=== PATIENT | female | born 1940 | race Caucasian/White ===

== ENCOUNTER → 2018-04-05 13:46 | Outpatient (CLI) | payer MEDICARE, OTHER | END | disposition home or self-care (01) | LOC: D.MRI 13:46 | DX: M54.5 Low back pain (principal) ==

== ENCOUNTER → 2019-07-17 13:12 | Outpatient (CLI) | payer MEDICARE, OTHER ==
--- NOTE | 2019-07-25 11:09 | EC ---
PATIENT:LISET PEREIRA DATE OF SERVICE: 07/17/19 SEX: F MEDICAL RECORD: [id number] DATE OF : 44 [facility] AGE OF PATIENT: 78 ADMISSION DATE: 07/17/19 REFERRING PHYSICIAN: INTERPRETING PHYSICIAN: WONG DUMONT MD ECHOCARDIOGRAM REPORT ECHO CHARGES 4 ECHO COMPLETE Date: 07/17/19 CLINICAL DIAGNOSIS: HTN/SOB/CHEST PRESSURE ECHOCARDIOGRAPHIC MEASUREMENTS (adult normal given) AC root (d.<3.7cm) 3.1 cm LV Septum d (<1.2 cm> 1.2 cm Valve Excursion 1.3 cm LV Septum (systole) 1.6 cm Left Atria (s.<4.0cm> 4.5 cm LVPW d(<1.2cm) 1.2 cm RV (d.<2.3cm) 2.5 cm LVPW (sytole) 1.9 cm LV diastole(<5.6CM) 5.3 cm MV E-F(>70mm/sec) cm LV systole 2.8 cm LVOT Diameter 1.7 cm MV exc.(>10mm) cm Est.ejection fraction (50-75%) % DOPPLER: LVIT cm/sec A 83.0 cm/sec E 66.0 cm/sec LA cm/sec RVSP 33.4 mmHg LVOT 92.0 cm/sec AOP1/2T m/s Asc. Ao 146 cm/sec RVOT 57.0 cm/sec RA cm/sec PA 89.0 cm/sec AV Gradient Peak 8.5 mmHg AV Mean 4.6 mmHg AV Area 1.3 cm MV Gradient Peak 4.7 mmHg MV Mean 1.3 mmHg MV Area cm COMMENTS: OP - HC Grey Tender: Tim ALFORD SHONNA Elementary Art Teacher: 1 Dr. Dumont TAPE# PACS Pericardial Effusion N DATE OF SERVICE: 07/17/2019 ECHOCARDIOGRAM DATE OF SERVICE: 07/17/2019 FINDINGS: 1. Left ventricular chamber size is within normal limits. Left ventricular systolic function is normal, estimated at 60%. 2. Left atrium is enlarged at 4.5 cm. Right atrium and right ventricular ECHOCARDIOGRAM REPORT [id number] LISET PEREIRA chamber sizes are as well aknv-id-voxxdyyeby dilated. 3. Valvular structures have normal structure and motion. 4. Doppler interrogation reveals trace mitral regurgitation, mild tricuspid regurgitation, no other valvular insufficiency or stenosis. Pulmonary systolic pressure is estimated at 33 mmHg. 5. No evidence of pericardial effusion or left ventricular thrombus. TRANSINT:[id number] Voice Confirmation ID: [id number] DOCUMENT ID: [id number] WONG DUMONT MD at 1109 CC: [id number] DICTATION DATE: 07/18/19 1558 PRODUCT MGR: 07/18/19 1629 [facility] CLI 07/17/19 [place] [id number]
== END | disposition home or self-care (01) ==
LOC: D.HCCARDIO 13:12
PROVIDERS: ATTEND Internal Medicine Interventional Cardiology
DX: I10 Essential (primary) hypertension (principal)

== ENCOUNTER → 2020-02-26 09:00 | Outpatient (CLI) | payer MEDICARE, OTHER | END | disposition home or self-care (01) | LOC: D.US 09:00 | PROVIDERS: ATTEND Internal Medicine Cardiovascular Disease | DX: M79.604 Pain in right leg (principal); M79.605 Pain in left leg ==

== ENCOUNTER → 2020-04-04 12:21 | Outpatient (CLI) | payer MEDICARE, OTHER | END | disposition home or self-care (01) | LOC: D.MRI 12:21 | PROVIDERS: ATTEND Registered Nurse Emergency | DX: M54.5 Low back pain (principal); M54.6 Pain in thoracic spine; M54.12 Radiculopathy, cervical region ==

== ENCOUNTER → 2020-05-08 10:51 | Outpatient (CLI) | payer MEDICARE, OTHER | END | disposition home or self-care (01) | LOC: D.HCCARDIO 10:51 | PROVIDERS: ATTEND Internal Medicine Cardiovascular Disease | DX: I25.10 Atherosclerotic heart disease of native coronary artery without angina pectoris (principal) ==

== ENCOUNTER 2020-05-22 11:45 | Outpatient (CLI) | payer MEDICARE, OTHER ==
[~2020-05-22] VITALS: Ht 162.6 cm; Wt 71.5 kg
--- NOTE | ~2020-05-22 | HEMODYNAMI ---
PATIENT:LISET PEREIRA MEDICAL RECORD: [id number] : 44 LOCATION:[facility] ADMISSION DATE: 05/22/20 Generatedon:05/22/202013:41 Patient name: LISET PEREIRA Patient #: [id number] SSN: [id number] : 1940 Date of study: 05/22/2020 Page: Of Hemodynamic Procedure Report Patient Data Patient Demographics Procedure consent was obtained First Name: LISET Gender: Female Last Name: KELLI : 1940 Middle Initial: LILIAN Age: 79 year(s) Patient #: [id number] Race: SSN: [id number] Additional ID: [id number] Contact details [address]: [address] [place] [address] State: [place] City: [place] Zip code: [address] Past Medical History Performed procedures and imaging results Date Procedure Procedure Results Comments 05/08/2020 Stress testing Positive->Intermediate with SPECT MPI risk Admission Admission Data Admission Date: 05/22/2020 Admission Time: 11:45 Admit Source: Other Lab Results Lab Result Date: 05/22/2020 Lab Result Time: 0:00 Biochemistry Name Units Result Min Max BUN mg/dl 14 --(--*-)-- 7 18 Creatinine mg/dl 0.9 --(-*--)-- 0.6 1.3 eGFR ml/min 64.30667 *-(----)-- 90 120 NONAFRICAN CBC Name Units Result Min Max Hematocrit % 39.9 -*(----)-- 42 54 Hemoglobin g/dl 13.1 -*(----)-- 13.5 17.5 Procedure Procedure Types Cath Procedure Diagnostic Procedure C [facility] w/Coronaries Sedation Charges Moderate Sedation up to 15 minutes Procedure Description Procedure Date Procedure Date: 05/22/2020 Procedure Start Time: 13:26 Procedure End Time: 13:39 Procedure Staff Name Function Joao Quan MD Performing Physician Gilda Carlton RT Monitor Khushbu Hickman RT Scrub Valerie Baker RN Nurse Procedure Data Cath Procedure Fluoroscopy Diagnostic fluoroscopy Total fluoroscopy Time: 2.6 time: 2.6 min min Diagnostic fluoroscopy Total fluoroscopy dose: 216 dose: 216 mGy mGy Contrast Material Contrast Material Type Amount (ml) Isovue 370 51 Entry Location Entry Primary Successful Side Size Upsize Upsize Entry Closure Carter ccessful Closure Location (Fr) 1 (Fr) 2 (Fr) Remarks Device Remarks Radial Right 6 Fr Mechanical artery Short Compression Estimated blood loss: 5 ml Diagnostic catheters Device Type Used For End Catheter Placement DIAGNOSTIC [place] 110cm 5 Procedure Fr catheter ([id number]) Procedure Complications No complications Procedure Medications Medication Administration Route Dosage Oxygen etCO2 Nasal cannula 2 l/min Lidocaine 2% added to field 20 Heparin Flush Bag added to field 2 bags (1000units/500ml NS) 0.9% NaCl I.V. 100 ml/hr Versed I.V. 1 mg Fentanyl I.V. 50 mcg Radial Cocktail I.A. 1 syringe (Verapamil 2mg/Nitro 400mcg/Heparin 1500units) Versed I.V. 1 mg Fentanyl I.V. 50 mcg Hemodynamics Rest HGB: 13.1 (g/dl) Heart Rate: 54 (bpm) Pressure Samples Time Site Value (mmHg) Purpose Heart Use Rate(bpm) 13:29 LV 143/41,50 Snapshot 50 Gradients Valve Time Site Site Mean SEP/DFP Peak To Heart Use 1 2 (mmHg) (sec/min) Peak Rate (mmHg) (bpm) Aortic 13:30 LV AO 76 Snapshots Pre Cath Intra NCS Post Cath Vital Signs Time Heart Resp SPO2 etCO2 NIBP (mmHg) Rhythm Pain Sedation Rate (ipm) (%) (mmHg) Status Level (bpm) 13:13:13 55 15 93 0 185/71(104) NSR 0 (11) 10(A) , No pain 13:17:50 54 16 96 22.4 181/66(89) NSR 0 (11) 10(A) , No pain 13:22:12 52 13 96 0 137/58(84) NSR 0 (11) 10(A) , No pain 13:27:27 50 11 99 11.2 154/54(95) NSR 0 (11) 9(A) , No pain 13:31:46 49 15 93 0 114/48(85) NSR 0 (11) 9(A) , No pain 13:35:55 53 14 95 40.4 122/53(99) NSR 0 (11) 10(A) , No pain Medications Time Medication Route Dose Verified Delivered Reason Notes Effectiveness by by 13:16:59 Oxygen etCO2 2 l/min Joao Buffie used for Nasal Kadeem Baker RN procedure cannula 13:17:06 Lidocaine 2% added 20ml Joao Joao for local to vial Kadeem Quan MD anesthetic field 13:19:35 Heparin Flush added 2 bags Joao Joao used for Bag to Kadeem Quan MD procedure (1000units/500ml field NS) 13:19:44 0.9% NaCl I.V. 100 Joao Buffie Per ml/hr Kadeem Baker RN physician 13:20:04 Versed I.V. 1 mg Joao Buffie for sedation Kadeem Baker RN 13:20:13 Fentanyl I.V. 50 mcg Joao Buffie for sedation Kadeem Baker RN 13:26:32 Versed I.V. 1 mg Joao Buffie for sedation Kadeem Baker RN 13:26:35 Fentanyl I.V. 50 mcg Joao Buffie for sedation Kadeem Baker RN 13:28:18 Radial Cocktail I.A. 1 Joao Joao for (Verapamil syringe Kadeem Quan MD vasodilation 2mg/Nitro 400mcg/Heparin 1500units) Procedure Log Time Note 12:52:39 Informed consent obtained and on chart 12:52:51 Diagnostic Cath Status : Elective 12:53:20 Procedure Status Elective Heart Cath (OP). 12:53:23 Time tracking: Regular hours (M-F 7:00 - 5:00) 12:53:32 Admit Source: Other 12:53:36 Khushbu Hickman RT(R) sent for patient. Start room use. 12:53:41 Plan of Care:Hemodynamics will remain stable., Cardiac rhythm will remain stable., Comfort level will be maintained., Respiratory function will remain adequate., Patient/ family verbilizes understanding of procedure., Procedure tolerated without complication., Recovers from procedure without complications.. 12:55:42 H&P Date Dictated: 05/22/2020 Within 30 days and on chart.. 12:55:49 Stress Test: yes; abnormal anterior 12:58:42 Patient received from Pre/Post Procedure Room to CCL 1 Alert and oriented. Tansferred to table in Supine position. 12:58:43 Warm blankets applied, and esperanza hugger turned on for patient comfort. 12:58:43 Correct patient and procedure confirmed by team. 12:58:44 ECG and BP/O2 sat monitors applied to patient. 12:58:54 Pre-procedure instructions explained to patient. 12:58:56 Pre-op teaching completed and patient verbalized understanding. 12:58:58 Family in waiting room. 12:59:00 Patient NPO since Midnight. 12:59:02 Is the patient allergic to Iodine/contrast media? No. 12:59:05 Was the patient premedicated? N/A 12:59:07 Is patient on blood thinner?No 12:59:09 Patient diabetic? No. 12:59:11 If diabetic: On Metformin? N/A 12:59:19 ----Pre-sedation anethsthesia assessment.---- 12:59:24 Previous problem with sedation/anesthesia? No ? 12:59:25 Snore? Unknown 12:59:27 Sleep apnea? Unknown 12:59:28 Deviated septum? No 12:59:29 Opens mouth fully? Yes 12:59:30 Sticks out tongue? Yes 12:59:32 Airway obstruction? No ? 12:59:34 Dentures? No ? 13:11:32 Pre procedure: right dorsailis pedis pulse 2+ Normal; easily identifiable; not easily obliterated 13:11:34 Modified Fredis's test Ulnar < 7 seconds 13:11:36 Patient pain scale 0/10 ?. 13:11:43 IV patent on arrival in left antecubital with 0.9% NaCl at [facility]. 13:11:48 Right Radial & Right Groin area was prepped with chlora-prep and draped in sterile fashion 13:11:49 Alarms reviewed by R. N. 13:11:50 Sharps counted by scrub and verified by R.N. 13:11:53 Vital chart was started 13:11:55 Baseline sample Acquired. 13:11:55 Full Disclosure recording started 13:13:07 Rhythm: sinus bradycardia 13:13:28 Patient not . Patient is over age 55. 13:15:15 Lab Result : BUN 14 mg/dl 13:15:15 Lab Result : Creatinine 0.9 mg/dl 13:15:15 Lab Result : eGFR NONAFRICAN 64.74711 ml/min 13:15:15 Lab Result : Hemoglobin 13.1 g/dl 13:15:15 Lab Result : Hematocrit 39.9 % 13:16:09 Risk of Mortality: 0.1 13:16:13 Risk of blood transfusion: 0.4 13:16:15 Risk of VASILE: 0.6 13:16:25 Use device set Radial Dx or PCI 13:16:27 ACIST Syringe (67267) opened to sterile field. 13:16:27 Medline Cath Pack ([id number]) opened to sterile field. 13:16:28 Bag Decanter (2002S) opened to sterile field. 13:16:28 ACIST Hand Control (12160) opened to sterile field. 13:16:29 ACIST Manifold (61706) opened to sterile field. 13:16:31 Tegaderm 4 x 4 (1626W) opened to sterile field. 13:16:32 MBrace Wrist Support ([id number]) opened to sterile field. 13:16:32 NEEDLE Cook 21G 4cm Radial (Z57218) opened to sterile field. 13:16:35 EMERALD Guide Wire (747-966) opened to sterile field. 13:16:35 SHEATH 6FR RAIN (0261594) opened to sterile field. 13:16:59 Oxygen 2 l/min etCO2 Nasal cannula was administered by Valerie Baker RN; used for procedure; Verbal order read back and verified. 13:17:06 Lidocaine 2% 20ml vial added to field was administered by Joao Quan MD; for local anesthetic; Verbal order read back and verified. 13:18:05 --------ALL STOP TIME OUT------ 13:18:05 Final Timeout: patient, procedure, and site verified with staff and physician. All members of the team are in agreement. 13:18:07 Right Radial & Right Groin site verified by team. 13:18:12 Fire Safety Assessment: A--An alcohol-based skin anteseptic being used preoperatively., C--Open oxygen or nitrous oxide is being used., D--An ESU, laser, or fiber-optic light is being used. 13:18:16 Physical assessment completed. ASA score P 2 - A patient with mild systemic disease as per Joao Quan MD. 13:18:19 2) 60-89 Mildly reduced kidney function, and other findings (as for stage 1) point to kidney disease. 13:18:24 Maximum allowable contrast dose (3.7 X eGFR X 0.75)178 ml. 13:18:28 Sedation plan: IV Moderate Sedation Medication:Versed, Fentanyl 13:19:35 Heparin Flush Bag (1000units/500ml NS) 2 bags added to field was administered by Joao Quan MD; used for procedure; Verbal order read back and verified. 13:19:44 0.9% NaCl 100 ml/hr I.V. was administered by Valerie Baker RN; Per physician; Verbal order read back and verified. 13:20:04 Versed 1 mg I.V. was administered by Valerie Baker RN; for sedation; Verbal order read back and verified. 13:20:13 Fentanyl 50 mcg I.V. was administered by Valerie Baker RN; for sedation; Verbal order read back and verified. 13:26:14 Procedure started. 13:26:32 Versed 1 mg I.V. was administered by Valerie Baker RN; for sedation; Verbal order read back and verified. 13:26:34 Local anesthetic to right radial artery with Lidocaine 2% by Joao Quan MD.INITIAL ACCESS ONLY 13:26:35 Fentanyl 50 mcg I.V. was administered by Valerie Baker RN; for sedation; Verbal order read back and verified. 13:28:00 A 6 Fr Short sheath was inserted into the Right Radial artery 13:28:18 Radial Cocktail (Verapamil 2mg/Nitro 400mcg/Heparin 1500units) 1 syringe I.A. was administered by Joao Quan MD; for vasodilation; Verbal order read back and verified. 13:28:53 A DIAGNOSTIC [place] 110cm 5 Fr catheter ([id number]) was advanced over the wire and used for Procedure. 13:29:33 LV gram done using BYRNES 13::54 Injector settings: Ml/sec: 5, Volume: 15, 13:30:01 LV hemodynamics recorded. 13:30:11 EF : 60 % 13:30:39 LCA angiography performed. 13:31:41 Injector settings: Ml/sec: 3, Volume: 6, 13:32:37 Catheter exchanged over wire. 13:33:42 GUIDE 6FR AR 1.0 catheter ([id number]) opened to sterile field. 13:34:17 RCA angiography performed. 13:34:21 Injector settings: Ml/sec: 3, Volume: 6, 13:34:38 Catheter removed. 13:34:47 ZEPHYR REGULAR TR BAND (617885) opened to sterile field. 13:34:57 Sheath removed intact; hemostasis achieved with Mechanical Compression to the Right Radial artery. 13:35:01 Procedure ended.(Physican Out) 13:35:31 Fluoroscopy time 02.60 minutes. 13:35:34 Flurop Dose total: 216 13:35:34 Fluoroscopy dose: 216 mGy 13:35:41 Dose Area Product 29196 mGy/cm. 13:35:45 Contrast amount:Isovue 370 51ml. 13:35:48 Maximum allowable dose exceeded? No. 13:35:50 Sharps counted by scrub and verified by R.N. 13:35:53 Post Procedure Pulses reassessed and unchanged 13:35:56 Post procedure: right dorsailis pedis pulse 2+ Normal; easily identifiable; not easily obliterated. 13:36:01 Post-procedure physical assessment completed. ASA score P 2 - A patient with mild systemic disease as per Joao Quan MD. 13:36:04 Post procedure rhythm: unchanged. 13:36:07 Estimated blood loss: 5 ml 13:36:09 Post procedure instruction explained to patient.Patient verbalizes understanding. 13:36:09 Patient needs reinforcement of post procedure teaching. 13:36:30 Procedure type changed to Cath procedure, Diagnostic procedure, LHC, [facility] w/Coronaries, Sedation Charges, Moderate Sedation up to 15 minutes 13:37:07 Procedure and supply charges have been captured, reviewed, submitted and are correct. 13:37:11 Procedure Complication : No complications 13:37:16 [facility] Findings: mild to moderate CAD (<70%) 13:37:17 Operative report dictated upon procedure completion. 13:37:18 See physician's report for complete and final results. 13:37:20 Report given to Pre/Post Procedure Room. 13:37:23 Patient transfered to Pre/Post Procedure Room with Stretcher. 13:38:56 [place] band inflated with 11cc of air. 13:39:09 Vital chart was stopped 13:39:12 Procedure ended. 13:39:12 Full Disclosure recording stopped 13:39:17 End room use (Document Last) 13:39:35 End room use (Document Last) Device Usage Item Name Manufacture Quantity Catalog Hospital Part Current Minima l Lot# / Number Charge Number Stock Stock Serial# Code ACIST Acist 1 43919 094329 557916 [id number] 20 Syringe Medical (58300) Systems Inc Medline Medline 1 [id number] 142263 03824 641231 5 Cath Pack ([id number]) Bag Microtek 1 2001S 333696 24643 621260 5 Decanter Medical Inc. () ACIST Hand Acist 1 35111 174443 228190 362291 5 Control Medical (36646) Systems Inc ACIST Acist 1 78152 066650 766432 572101 5 Manifold Medical (54290) Systems Inc Tegaderm 4 3M 1 1626W 712262 255409 462196 5 x 4 (1626W) MBrace Advanced 1 140-0250-00 021208 09260 004196 5 Wrist Vascular Support Dynamics ([id number]) NEEDLE Totally Interactive Weather Medical 1 T79763 353848 938693 783262 5 21G 4cm Radial (M73392) EMERALD Cardinal 1 502-455 331604 207643 362412 5 Guide Wire Health (502-455) SHEATH 6FR Cardinal 1 [id number] 879677 6622534 298901 5 [facility] (5932875) DIAGNOSTIC Terumo 1 40-5013 374571 918586 932693 5 [place] 110cm 5 Fr catheter (179308) GUIDE 6FR Medtronic 1 [id number] 029968 60914 709833 1 AR 1.0 catheter ([id number]) ZEPHYR Cardinal 1 028073 338528 1652045 816716 5 REGULAR TR Health BAND (912580) Signature Audit [place] Stage Time Signature Unsigned Intra-Procedure 05/22/2020 Gilda Carlton 1:39:35 PM RT(R) Intra-Procedure 05/22/2020 Valerie Baker RN 1:40:56 PM Intra-Procedure 05/22/2020 Joao Quan MD 1:41:[address] [address]
[2020-05-22] MEDS ORDERED: BISOPROLOL FUMAR5 MG PO (12:25)
[2020-05-22] MEDS ORDERED: HCTZ25 MG PO (12:26)
[2020-05-22] MEDS ORDERED: BAYER CHEWABLE81 MG PO (12:26)
[2020-05-22] MEDS ORDERED: OMEPRAZOLE20 M1 PO (12:28)
[2020-05-22] MEDS ORDERED: ACETAMINOPHEN500 M1 PO (12:29)
[2020-05-22 12:34] VITALS: BP 182/78; Ht 162.6 cm; Wt 71.5 kg
[2020-05-22 12:52] LABS: BASOPHILS 0.2 % (0-2); EOSINOPHILS 4.4 % (0-7); HEMATOCRIT 39.9 % (36.0-48.0); HEMOGLOBIN 13.1 g/dL (12-16); IMMATURE GRANULOCYTES 0.4 % (0-5); LYMPHOCYTES 36.1 % (15-50); MCH 30.7 pg (26.0-34.0); MCHC 32.8 g/dL (31.0-37.0); MCV 93.4 fL (80.0-100.0); MEAN PLATELET VOLUME 10.6 fL (7.4-10.4); MONOCYTES 13.1 % (2-11); NEUTROPHILS 45.8 % (40-80); PLATELET COUNT 272 10x3/uL (130-400); RBC 4.27 10x6/uL (4.00-5.40); RDW 13.3 % (11.5-14.5)
[2020-05-22 13:03] LABS: ANION GAP 8.3 mmol/L (8-16); CALCIUM 8.8 mg/dL (8.5-10.1); CARBON DIOXIDE 30.6 mmol/L (21.0-32.0); CHOL - HDL RATIO 4.9 ratio (2.3-4.1); CREATININE - SERUM 0.9 mg/dL (0.6-1.3); LDL-HDL RATIO 3.4 ratio (1.5-3.5); POTASSIUM - SERUM 3.9 mmol/L (3.5-5.1)
--- NOTE | 2020-05-22 13:52 | NUR ---
PT ARRIVED BY STRETCHER. PLACED ON MONITORS. ASSESSMENT COMPLETED. VSS AT THIS TIME. CALL LIGHT WITHIN REACH.
--- NOTE | 2020-05-22 14:10 | NUR ---
PT RESTING COMFORTABLY. RIGHT RADIAL Z BAND IN PLACE. NO BLEEDING/HEMATOMA NOTED. CALL LIGHT WITHIN REACH. VSS AT THIS TIME. CAP REFILL TO RIGHT HAND <3 SECS.
--- NOTE | 2020-05-22 14:45 | NUR ---
PT RESTING COMFORTABLY. VSS AT THIS TIME. CALL LIGHT WITHIN REACH. VSS. NO NEEDS AT THIS TIME.
--- NOTE | 2020-05-22 15:00 | NUR ---
HEAD OF BED AT 30 DEGREES. 2cc OF AIR REMOVED FROM Z BAND. NO BLEEDING/HEMATOMA NOTED. PT DENIES NAUSEA/PAIN. PT SET UP WITH COFFEE AND SANDWICH TRAY AT THIS TIME. VSS. CALL LIGHT WITHIN REACH. WILL CONTINUE TO MONITOR.
--- NOTE | 2020-05-22 15:10 | NUR ---
DR. GALO ROUNDED AND SPOKE WITH PT. PT'S CALLED AND UPDATED ON PT'S STATUS AND DISCHARGE TIME.
--- NOTE | 2020-05-22 15:15 | NUR ---
3cc OF AIR REMOVED FROM Z BAND. NO BLEEDING/HEMATOMA NOTED. CALL LIGHT WITHIN REACH. PT FINISHED SANDWICH AND DRINK. TOLERATED WELL. BACK TO RESTING WITH EYES CLOSED. VSS.
--- NOTE | 2020-05-22 15:30 | NUR ---
4cc OF AIR REMOVED FROM Z BAND. NO BLEEDING/HEMATOMA NOTED. CALL LIGHT WITHIN REACH. PT RESTING COMFORTABLY. VSS.
--- NOTE | 2020-05-22 15:45 | NUR ---
Z BAND REMOVED. DRESSING APPLIED. NO BLEEDING/HEMATOMA NOTED. PIV D/C'D WITH CATH TIP INTACT. TOLERATED WELL. PT INSTRUCTED TO GET DRESSED AT THIS TIME. NO ASSISTANCE NEEDED. DISCUSSED DISCHARGE INSTRUCTIONS WITH PT. SHE VOICED UNDERSTANDING.
--- NOTE | 2020-05-22 15:55 | NUR ---
PT AMBULATED TO RESTROOM. VOIDED WITHOUT DIFFICULTY. STEADY GAIT NOTED.
--- NOTE | 2020-05-22 16:00 | NUR ---
RIGHT WRIST DRESSING C/D/I. NO S/S OF HEMATOMA NOTED.
--- NOTE | 2020-05-22 16:10 | NUR ---
PT TAKEN DOWN TO VEHICLE BY WHEELCHAIR. NO S/S OF DISTRESS NOTED. ALL BELONGINGS AND PAPERWORK IN HAND.
== END 2020-05-22 16:10 | disposition home or self-care (01) ==
LOC: D.CATH 11:45
PROVIDERS: ATTEND Internal Medicine Cardiovascular Disease
DX: I20.9 Angina pectoris, unspecified (principal); R94.39 Abnormal result of other cardiovascular function study; I10 Essential (primary) hypertension; E78.5 Hyperlipidemia, unspecified

== ENCOUNTER → 2020-07-18 09:28 | Outpatient (CLI) | payer MEDICARE, OTHER ==
[2020-05-22 12:34] VITALS: BMI 27.0
[~2020-07-18 09:28] MED LIST: ACETAMINOPHEN500 M1 PO; BAYER CHEWABLE81 MG PO; BISOPROLOL FUMAR5 MG PO; HCTZ25 MG PO; OMEPRAZOLE20 M1 PO
== END | disposition home or self-care (01) ==
LOC: D.CT 09:28
PROVIDERS: ATTEND Registered Nurse Emergency
DX: R10.9 Unspecified abdominal pain (principal)